=== PATIENT | male | born 1975 | race Two or more races ===

== ENCOUNTER 2022-10-19 23:49 | Emergency (ER) | payer MEDICAID ==
[~2022-10-19] VITALS: Ht 167.6 cm; Wt 76.7 kg
[2022-10-20 00:03] VITALS: BP 145/83
[2022-10-20] MEDS ORDERED: IBUPROFEN 400 MG TABLET ONE (00:14)
--- NOTE | 2022-10-20 00:15 | NUR ---
Patient discharged to home in stable condition. Written and verbal after care instructions given. Patient verbalizes understanding of instruction.
[2022-10-20] MEDS ORDERED: IBUPROFEN 400 MG TABLET PO ONE (00:30)
== END 2022-10-20 00:19 | disposition home or self-care (01) ==
LOC: ER 23:52
DX: M62.838 Other muscle spasm (principal); V89.2XXA Person injured in unspecified motor-vehicle accident, traffic, initial encounter; Y93.89 Activity, other specified; Y92.89 Other specified places as the place of occurrence of the external cause; Y99.8 Other external cause status